=== PATIENT | male | born 1980 | race Caucasian/White ===

== ENCOUNTER 2024-04-22 19:20 | Emergency (ER) | payer OTHER, SELFPAY ==
[2024-04-22 19:23] VITALS: BP 141/67
[2024-04-22 19:26] VITALS: BP 141/67; BMI 19.8
--- NOTE | 2024-04-22 19:45 | ED.GENMED ---
History of Present Illness
General
Chief Complaint: Urinary Symptoms
Source: patient
Exam Limitations: none
Time Seen by Provider: 04/22/24 19:27
History of Present Illness
History of Present Illness:
43-year-old male from [facility] who presents with bloody urine. The patient states that he has peed a lot today. He states he does not really have any pain. He has little bit of upper abdominal discomfort but no other symptoms. No
dysuria. No trauma that he knows of. Denies any foreign bodies. No back pain.
Past History
Past History
ED Past Medical History: Other (Patient reports a tickborne illness)
Phy Exam
Physical Exam
Physical Exam:
CONSTITUTIONAL Patient alert and oriented to person, place and time. Well-appearing. Vital signs reviewed.
HEAD atraumatic, normocephalic.
EYES eyelids normal to inspection, Extraocular muscles intact, Conjunctiva normal, Sclera normal.
NECK normal range of motion, Trachea midline, no jugular venous distention.
RESPIRATORY CHEST No respiratory distress noted, Chest expansion equal,
ABDOMEN abdomen nontender, Bowel sounds normal. No distention. Penis normal, no obvious blood at the meatus
BACK normal inspection, no obvious deformities
UPPER EXTREMITY range of motion normal, Motor strength normal, no cyanosis, no edema.
LOWER EXTREMITY range of motion normal, Motor strength normal, no cyanosis, no edema.
NEURO Speech normal, No focal motor deficits, Basco coma scale 15, Memory normal, Cranial Nerves intact to screening exam.
SKIN skin warm, dry, and normal in color.
Course
Orders/Labs/Results
Orders:
Orders
04/22/24 19:37
Basic Metabolic Panel Urgent
Complete Blood Count/With Diff Urgent
Creatine Phosphokinase Urgent
Comment: ADD ON
04/22/24 19:44
US Renal With Bladder Urgent
Comment:
Reason For Exam: hematuria
04/22/24 19:45
0.9% Sodium Chloride 500 ml [Nss] 500 ml IV BOLUS
04/22/24 19:53
Urinalysis Reflex To Culture Urgent
Date Specimen was Collected: 04/22/24
Time Specimen was Collected: 19:51
Urine Drug Abuse Screen Urgent
Date Specimen was Collected: 04/22/24
Time Specimen was Collected: 19:51
Urine Microscopic Reflex Cult Urgent
04/22/24 20:14
Add On- LAB Urgent
Tests Added?: CPK
Add On- LAB Urgent
Tests Added?: drug abuse screen - urine
Abnormal Lab Results
04/22/24 04/22/24
19:37 19:53
RBC 4.18 L 10^6/uL
(4.70-6.10)
MCV 94.5 H fL
(80.0-94.0)
MCH 31.8 H pg
(27.0-31.0)
Creatine Kinase 42 L U/L
(55-170)
Urine Ketones 1+ A
(Negative)
Ur Occult Blood Reflex 4+ A
(Negative)
Urine RBC >100 A /HPF
(0-2)
Urine Bacteria (Reflex) Few A
(Negative)
Urine Albumin (Reflex) 4+ A
(Neg - Trace)
04/22/24 19:37
04/22/24 19:37
Vital Signs
Initial and Last Documented VS:
Initial Vital Signs
BP Pulse Ox
141/67 100
04/22/24 19:23 04/22/24 19:23
Last Documented Vital Signs
Temp Pulse Resp BP Pulse Ox
98.6 F 41 14 131/68 100
04/22/24 19:26 04/22/24 20:30 04/22/24 20:30 04/22/24 20:00 04/22/24 20:30
MDM/Problems Addressed
MDM/Problems Addressed:
Hematuria
*Pulse Oximetry
Patient hypoxic: no
*Critical Care Note
Total Time (30-74mins, 75-104mins- exclusive of procedures): Not Applicable
ED Attending Note
-
Portions of this chart may have been created with voice recognition software.� Occasional wrong word or��sound alike� substitutions may have occurred due to the inherent limitations of voice recognition software.
Discharge Plan
Departure
Patient Disposition: Home (Routine Discharge)
Date of Disposition: 04/23/24
Time of Disposition: 00:08
Patient with high blood pressure during this ER visit?: No
Discharge Problem:
Painless hematuria, Bladder mass
Instructions: Blood in the Urine (Hematuria), Adult (DC)
Prescriptions:
No Action
nicotine 21 MG patch 24 hour
21 mg transdermal DAILY 0RF
Referrals:
[facility] [Family Provider] -
Jin Hernandez MD [Active] -
Activity Restrictions/Additional Instructions:
Please see urology in the next 2 to 3 days for follow-up and reevaluation. Please be sure to have present staff call to get you in for a cystoscopy. I did discuss your case with Dr. Hernandez of urology. Return immediately for differential
urinating, weakness, lightheadedness, fevers or any other concerns.
Interventions
Interventions:
*Risk Screen - Suicide Last Done: 04/22/24 19:26
*General Assessment Last Done: 04/22/24 19:26
*Neglect/Abuse Screening Last Done: 04/22/24 19:26
ED- Fall Risk Assessment Last Done: 04/22/24 19:35
*ED COVID-19 Vaccine History Last Done: 04/22/24 19:26
ED-Male Genitourinary Assessment Last Done: 04/22/24 19:35
Discharge Date and Time
Print Language: UKRAINIAN
[2024-04-22] MEDS: NSS 500 IV (19:49)
[2024-04-22 19:50] LABS: % Basophils 0.7 % (0-2); % Eosinophils 2.1 % (0-6); % Immature Granulocytes 0.4 % (0-0.5); % Lymphocytes 37.7 % (20.5-51.1); % Monocytes 6.8 % (1.7-9.3); % Neutrophils 52.3 % (42.2-75.2); Absolute Basophils 0.1 10^3/uL (0-0.2); Absolute Eosinophils 0.2 10^3/uL (0-0.7); Absolute Lymphocytes 3.4 10^3/uL (1.2-3.4); Absolute Monocytes 0.6 10^3/uL (0.1-0.6); Absolute Neutrophils 4.7 10^3/uL (1.4-6.5); Hematocrit 39.5 % (39.0-52.0); Hemoglobin 13.3 g/dL (13.0-18.0); Mean Corp Hgb Conc. 33.7 g/dL (33.0-37.0); Mean Corpuscular Hgb 31.8 pg (27.0-31.0); Mean Corpuscular Volume 94.5 fL (80.0-94.0); Mean Platelet Volume 9.6 fL (7.4-10.4); Nucleated Red Blood Cells % 0 % (-); Platelet Count 286 10^3/uL (130-400); Red Blood Cell Count 4.18 10^6/uL (4.70-6.10); Red Cell Dist. Width 13.4 % (11.5-14.5)
[2024-04-22 20:00] VITALS: BP 131/68
[2024-04-22 20:03] LABS: Urine Albumin 4+ (Neg - Trace); Urine Bilirubin Negative (Negative); Urine Character Cloudy (Clear); Urine Color Red; Urine Glucose Negative (Negative); Urine Ketone 1+ (Negative); Urine Leukocyte Negative (Negative); Urine Nitrite Negative (Negative); Urine Occult Blood 4+ (Negative); Urine Specific Gravity 1.015 (<1.030); Urine Urobilinogen Negative (Neg - 1+)
[2024-04-22 20:07] LABS: Blood Urea Nitrogen 19 mg/dl (9-20); Calcium 9.7 mg/dl (8.4-10.2); Carbon Dioxide 30 mmol/L (22-30); Chloride 100 mmol/L (98-107); Estimated Creatinine Clearance 100 ml/min; Glucose 93 mg/dl (70-99); Potassium 4.5 mmol/L (3.5-5.1); Sodium 138 mmol/L (135-145); eGFR > 60.00
[2024-04-22 20:13] LABS: Urine Bacteria Few (Negative); Urine Red Blood Cell >100 /HPF (0-2); Urine Squamous Cell 0-2 /LPF (Few); Urine White Cell 0-2 /HPF (0-5)
[2024-04-22 20:25] LABS: Creatine Phosphokinase 42 U/L (55-170)
[2024-04-22 20:35] LABS: Amphetamines Negative (Negative); Barbiturates Negative (Negative); Benzodiazepines Negative (Negative); Buprenorphine Negative (Negative); Cocaine Negative (Negative); Marijuana Negative (Negative); Methadone Negative (Negative); Methamphetamines Negative (Negative); Opiates Negative (Negative); Phencyclidine Negative (Negative); Tricyclic Antidepressants Negative (Negative)
[2024-04-23 00:18] VITALS: BP 113/55
== END 2024-04-23 00:21 | disposition home or self-care (01) ==
LOC: EMR 19:20
PROVIDERS: EMERGENCY PHYSICIAN Emergency Medicine
DX: R31.9 Hematuria, unspecified (principal); N32.9 Bladder disorder, unspecified
CPT/HCPCS: 99284; 76770; 80048; 80306; 81003; 81015; 82550; 85025